=== PATIENT | female | born 1995 | race Caucasian/White ===

== ENCOUNTER 2021-02-08 12:20 | Outpatient (CLI) | payer MEDICAID ==
[~2021-02-08] VITALS: Ht 167.7 cm; Wt 122.5 kg
[2021-02-08 12:55] LABS: BILIRUBIN,URINE NEGATIVE (NEGATIVE); CLARITY,URINE CLEAR; COLOR,URINE YELLOW; GLUCOSE, URINE (UA) NEGATIVE (NEGATIVE); KETONES,URINE NEGATIVE (NEGATIVE); LEUKOCYTE ESTERASE ,URINE TRACE (NEGATIVE); NITRITE,URINE NEGATIVE (NEGATIVE); PROTEIN,URINE NEGATIVE (NEGATIVE)
[2021-02-08 13:03] LABS: BACTERIA,URINE TRACE /HPF; WBC,URINE 0-2 /HPF
[2021-02-08] MEDS ORDERED: ACETAMINOPHEN 500 MG TAB (TYLENOL) PO ONE (13:15)
[2021-02-08] MEDS ORDERED: ACETAMINOPHEN 500 MG TAB (TYLENOL) ONE (13:21)
[2021-02-08 13:36] VITALS: BP 118/58
--- NOTE | 2021-02-11 08:37 | Physician Query-Final Dx ---
Clinic Account Progress/Dx Physician Query: Please give diagnosis Please include # weeks gestation Date of Service Feb 08, 2021 at 12:20 MEREDITH SANCHES Feb 11, 2021 08:37
== END 2021-02-08 13:45 | disposition home or self-care (01) ==
LOC: WSo 12:20 → LDRP 12:20 → WSo 13:45
PROVIDERS: ATTEND Family Medicine
DX: O26.893 Other specified pregnancy related conditions, third trimester (principal); M54.9 Dorsalgia, unspecified; R10.9 Unspecified abdominal pain; Z3A.32 32 weeks gestation of pregnancy
CPT/HCPCS: 81000; 99213

== ENCOUNTER 2021-02-08 13:50 | Emergency (ER) | payer MEDICAID ==
[~2021-02-08] VITALS: Ht 170.2 cm; Wt 122.5 kg
--- NOTE | 2021-02-08 14:27 | ED Cough/URI ---
General Chief Complaint: Cough/Cold/Flu Symptoms Stated Complaint: RESPIRTORY ISSUES Source: patient Exam Limitations: no limitations History of Present Illness Date Seen by Provider: Feb 08, 2021 Time Seen by Provider: 14:07 Initial Comments Here with report of cough, congestion, runny nose, sore throat and body aches that have been going on for the last 2 days. Exposure late last week to somebody who may have had COVID-19. They did not get tested so she is not sure. She lives in [place] which has high incidence of COVID-19 currently. She is 32 weeks . She was sent down from the OB floor after OB evaluation. This apparently was normal. Patient will ultimately switch OB to [place]. Timing/Duration: getting worse, other (2 to 3 days ago) Severity/Quality: moderate, dry cough Prior Episodes/Possible Cause: occasional episodes Associated Symptoms: cough, fever/chills, headache, muscle aches, nasal congestion, nasal drainage, shortness of breath, sore throat Allergies and Home Medications Allergies Coded Allergies: No Known Drug Allergies (Unverified , 02/08/21) Home Medications No Active Prescriptions or Reported Meds Patient Home Medication List Home Medication List Reviewed: Yes Review of Systems Review of Systems Constitutional: see HPI EENTM: see HPI Respiratory: see HPI Cardiovascular: No chest pain, No edema Gastrointestinal: No abdominal pain; nausea; No vomiting Genitourinary: no symptoms reported Musculoskeletal: see HPI Skin: no symptoms reported All Other Systems Reviewed Negative Unless Noted: Yes Past Wjrzcbk-Bwqmbl-Eloyms Hx Patient Social History Tobacco Use?: No Smoking Status: Former Smoker Smokeless Tobacco Frequency: Never a User Substance use?: No Alcohol Use?: No Pt feels they are or have been: No Past Medical History Surgeries: Yes Orthopedic Respiratory: No Cardiac: No Neurological: No : Yes Genitourinary: No Gastrointestinal: No Family Medical History Reviewed and Corrections made No Pertinent Family Hx Physical Exam Vital Signs - First Documented 02/08/21 13:56 Temp 36.6 Pulse 96 Resp 22 B/P (MAP) 123/76 (92) Pulse Ox 96 O2 Delivery Room Air Capillary Refill : Height: '" Weight: lbs. oz. kg; 43.55 BMI Method: General Appearance: WD/WN, no apparent distress HEENT: PERRL/EOMI, pharynx normal Neck: full range of motion, supple Respiratory: lungs clear, normal breath sounds Cardiovascular: no murmur, tachycardia Gastrointestinal: non tender, soft Extremities: non-tender, normal inspection Neurologic/Psychiatric: no motor/sensory deficits, alert Skin: normal color, warm/dry Progress/Results/Core Measures Suspected Sepsis SIRS Temperature: Pulse: Respiratory Rate: Blood Pressure / Mean: Results/Orders Lab Results Laboratory Tests Test 02/08/21 14:00 Range/Units Influenza Type A (RT-PCR) Not Detected Not Detecte Influenza Type B (RT-PCR) Not Detected Not Detecte SARS-CoV-2 RNA (RT-PCR) Detected H Not Detecte My Orders Orders - SINDY POZO MD Covid 19 Inhouse Test (02/08/21 14:14) Influenza A And B By Pcr (02/08/21 14:14) Vital Signs/I&O 02/08/21 13:56 Temp 36.6 Pulse 96 Resp 22 B/P (MAP) 123/76 (92) Pulse Ox 96 O2 Delivery Room Air Capillary Refill : Progress Note : Progress Note Seen and evaluated. Patient's vital signs are okay with oxygen saturation in normal range. Lung sounds are normal. Patient has findings concerning for COVID-19 or influenza. We will go ahead and test for that. I did discuss the case with Dr. Busch. He states that she is clear from OB perspective. Sent down for further evaluation related to concerns for Covid. She did receive Tylenol earlier and she is currently afebrile. Monitor patient. 1525: Patient is positive for COVID-19. I have reviewed the emergency use authorization in is not contraindicated and actually has been listed as a possible in dication. I did review the emergency use authorization fax sheet with the patient and that was given to her as well. She does meet criteria due to BMI of 42.3. Patient is at high risk for serious disease due to weight and . She has agreed to monoclonal antibody therapy (combination therapy). Order signed and sent to pharmacy. Discharged home with return precautions. Patient verbalized understanding instructions and agreement with plan. Departure Impression Primary Impression: COVID-19 virus infection Additional Impression: 32 weeks gestation of Disposition: 01 HOME, SELF-CARE Condition: Stable Departure-Patient Inst. Decision time for Depature: 15:26 Referrals: NO,LOCAL PHYSICIAN (PCP/Family) Primary Care Physician Patient Instructions: COVID-19 and , COVID-19 (DC) Add. Discharge Instructions: All discharge instructions reviewed with patient and/or family. Voiced underst anding. You will be called by the hospital for setting up appointment for the monoclonal antibody therapy as discussed. That will be done at the outpatient surgery center. Keep that appointment as scheduled. Follow-up with your OB doctor for recheck and further evaluation but let them know you are COVID-19 status. You may take Tylenol/acetaminophen up to 1000 mg every 6-8 hours as needed for fever or pain. Drink plenty of fluids. Get plenty of rest. You should purchase an [id number] oxygen saturation monitor to monitor your oxygen saturations while at rest. If your oxygen saturation is below 90% while at rest for a few minutes, you should immediately return to the emergency department for further evaluation and care. Return for worse pain, vomiting, weakness, inability to keep fluids down or other concerns as needed. You have the COVID-19 viral infection and are required to isolate away from others until you are cleared by your health department (a minimum of 10 days since onset of disease but may be longer if fever persists). You should notify your local health department that you have this illness. They will need a list of your close contacts to assist with quarantine to prevent spread of this disease. Scripts No Active Prescriptions or Reported Meds SINDY POZO MD Feb 08, 2021 14:27
[2021-02-08 15:48] VITALS: BP 115/54
== END 2021-02-08 15:48 | disposition home or self-care (01) ==
LOC: EDUNIT# 13:50 → ER 13:51
DX: O98.513 Other viral diseases complicating pregnancy, third trimester (principal); U07.1 COVID-19; Z87.891 Personal history of nicotine dependence; Z3A.32 32 weeks gestation of pregnancy
CPT/HCPCS: 87636; 99282